=== PATIENT | male | born 1950 | race Caucasian/White ===

== ENCOUNTER 2017-01-26 21:22 | Emergency (ER) | payer OTHER ==
[2017-01-26 21:37] VITALS: BP 149/82
[2017-01-26] MEDS ORDERED: DOXYcycline CAP(*) 100 MG PO ONE (21:54)
--- NOTE | 2017-01-26 22:01 | UC ---
Skin Complaint HPI - HPI Summary HPI Summary: Noticed black dot on L upper thigh 2 days ago, thought it was mole. Noticed it again today, realized it was a tick. Removed with tweezers, but the tick came apart and pt is concerned about part of tick remaining. Worried about lyme. - History of Current Complaint Chief Complaint: UCWounds Time Seen by Provider: 01/26/17 21:39 Stated Complaint: TICK Hx Obtained From: Patient Onset/Duration: Gradual Onset, Lasting Days Timing: Constant Onset Severity: Mild Current Severity: Mild Location: Discrete Character: Redness Aggravating: Nothing Alleviating: Nothing Related History: Insect Bite/Sting - Allergy/Home Medications Allergies/Adverse Reactions: Allergies Allergy/AdvReac Type Severity Reaction Status Date / Time Iodine Allergy Unknown Unknown Verified 01/26/17 21:37 Reaction Details Shellfish Allergy Allergy Anaphylatic Verified 01/26/17 21:37 Shock Review of Systems Constitutional: Negative Skin: Other - tick bite Eyes: Negative ENT: Negative Respiratory: Negative Cardiovascular: Negative Gastrointestinal: Negative Genitourinary: Negative Motor: Negative Neurovascular: Negative Musculoskeletal: Negative Neurological: Negative Psychological: Negative All Other Systems Reviewed And Are Negative: Yes PMH/Surg Hx/FS Hx/Imm Hx Endocrine History Of: Reports: Diabetes Cardiovascular History Of: Reports: Hypertension Denies: Pacemaker/ICD - Surgical History Surgical History: Yes Surgery Procedure, Year, and Place: APPENDECTOMY 1986. Throat paploma removal 2011. L4-L5 Herniated disc- fragmented - Family History Known Family History: Positive: Hypertension, Diabetes Family History: FHx of [place] - Social History Occupation: Employed Full-time Alcohol Use: None Substance Use Type: None Smoking Status (MU): Never Smoked Tobacco - Immunization History Most Recent Influenza Vaccination: 2014 Most Recent Tetanus Shot: Up to date per patient Most Recent Pneumonia Vaccination: Up to date per patient Physical Exam Triage Information Reviewed: Yes Appearance: Well-Appearing, No Pain Distress, Well-Nourished Vital Signs: Initial Vital Signs Temp 98.9 F 01/26/17 21:30 Pulse 92 01/26/17 21:30 Resp 16 01/26/17 21:30 BP 149/82 01/26/17 21:30 Pulse Ox 98 01/26/17 21:30 Vital Signs Reviewed: Yes Eye Exam: Normal Eyes: Positive: Conjunctiva Clear ENT Exam: Normal ENT: Positive: Normal ENT inspection, Hearing grossly normal, Pharynx normal, TMs normal Dental Exam: Normal Neck exam: Normal Neck: Positive: Supple, Nontender, No Lymphadenopathy Respiratory Exam: Normal Respiratory: Positive: Chest non-tender, Lungs clear, Normal breath sounds, No respiratory distress, No accessory muscle use Cardiovascular Exam: Normal Cardiovascular: Positive: RRR, No Murmur Musculoskeletal Exam: Normal Neurological Exam: Normal Psychological Exam: Normal Skin Exam: Other - tick bite site benign, no streaking or drainage. Small piece of tick part removed with splinter forceps. Pt bucky well. Course/Dx - Diagnoses Provider Diagnoses: tick bite. partial tick removal. elevated blood pressure due to discomfort Discharge - Discharge Plan Condition: Stable Disposition: HOME Patient Education Materials: Tick Bite (ED) Referrals: Arpan Urias MD [Primary Care Provider] - Additional Instructions: TICK BITE: You have been bitten by a tick. Once the tick is removed, these "bites" usually cause no problems. Tick fever, tick paralysis, [place] Spotted fever, and Lyme disease are uncommon -- but you should mention this tick bite to your doctor if you develop unusual symptoms in the next several weeks. If you develop any of the following, please see your physician promptly: (1) Fever, chills, or generalized malaise associated with a headache. (2) A red round area at the site of the bite (or elsewhere) (3) Joint pain, joint swelling or generalized weakness. (4) Redness, swelling, or drainage at the site of the bite. Check yourself, your children and your pets for ticks whenever you've been in an area where ticks live. To remove a tick, grasp it firmly with some tweezers or a string in a slipknot as close to its head as possible and pull it steadily. Ticks do not have a typical "head" attached to their body. There are mouth parts sticking out which they use to feed. If there are mouth parts left behind in the wound there is NO increased risk of Lyme infection; however, the chances of a bacterial skin infection (cellulitis) are higher. If mouth parts remain after tick removal, the best thing to do is apply warm soaks to the area 3-4 times per day to encourage the skin to expel the foreign material. DOXYCYCLINE: Doxycycline (Vibramycin, Doryx) is an antibiotic of the tetracycline family. This type of drug is useful for infections of the respiratory tract and genital tract, and is sometimes used for intestinal infections. Unlike most tetracyclines, doxycycline can be taken with food. It is longer acting, and (usually) less prone to side effects than regular tetracycline. Tetracycline antibiotics can stain immature teeth and SHOULD NOT BE TAKEN BY CHILDREN, NURSING MOTHERS, OR WOMEN. Tetracyclines can make you more prone to sunburn. Abdominal cramping, nausea, and diarrhea are occasional side effects. Women may experience vaginal yeast infections. Call the doctor at once if you develop hives, itching, shortness of breath , or lightheadedness. WHEN A TICK IS NOT ENGORGED AND HAS BEEN ON LESS THAN 24 HOURS - THE RISK FOR LYME IS NEGLIGIBLE. YOU CAN REMOVE THE TICK AND OBSERVE THE AREA ON YOUR OWN. FOLLOW-UP CARE: You should contact your private physician for follow-up care if you develop spreading redness near the site of the bite or on any other areas of the body. If you are unable to get a timely appointment, or if you are worsening, call us or return for re-evaluation.
== END 2017-01-26 22:04 | disposition home or self-care (01) ==
LOC: UCEAST 21:22
DX: S70.362A Insect bite (nonvenomous), left thigh, initial encounter (principal); W57.XXXA Bitten or stung by nonvenomous insect and other nonvenomous arthropods, initial encounter; Y93.9 Activity, unspecified; Y92.9 Unspecified place or not applicable; I10 Essential (primary) hypertension
CPT/HCPCS: 99212; A9270-GY; G0463

== ENCOUNTER 2017-04-19 12:28 | Emergency (ER) | payer OTHER ==
[2017-04-19 12:44] VITALS: BP 137/78
--- NOTE | 2017-04-19 13:05 | UC ---
Throat Pain/Nasal Roberto Carlos HPI - HPI Summary HPI Summary: Patient has had 4 weeks of on and off sore throat pain, DAILY, nasal congestion, denies fever, complaining of cough and feeling tired - History of Current Complaint Chief Complaint: UCGeneralIllness Stated Complaint: SINUS/THROAT/NECK PAIN Time Seen by Provider: 04/19/17 12:33 Hx Obtained From: Patient Onset/Duration: Sudden Onset, Lasting Weeks Severity: Moderate Associated Signs & Symptoms: Positive: Dysphagia, Sinus Discomfort, Nasal Discharge - Epiglottits Risk Factors Epiglottis Risk Factors: Negative - Allergies/Home Medications Allergies/Adverse Reactions: Allergies Allergy/AdvReac Type Severity Reaction Status Date / Time Iodine Allergy Unknown Unknown Verified 04/19/17 12:33 Reaction Details Pollen Extract Allergy Unknown Verified 04/19/17 12:33 Reaction Details Shellfish Allergy Allergy Anaphylatic Verified 04/19/17 12:33 Shock Home Medications: Home Medications Acetaminophen [Eq Pain Reliever] 2 tab PO Q6HR PRN 04/19/17 [History Confirmed 04/19/17] Ibuprofen [Advil] 400 mg PO Q6HR PRN 04/19/17 [History Confirmed 04/19/17] PMH/Surg Hx/FS Hx/Imm Hx Previously Healthy: Yes - Surgical History Surgical History: Yes Surgery Procedure, Year, and Place: APPENDECTOMY 1986. Throat paploma removal 2011. L4-L5 Herniated disc- fragmented - Family History Known Family History: Positive: Hypertension, Diabetes Family History: FHx of [place] - Social History Alcohol Use: Rare Alcohol Amount: 1 Beer Yearly Substance Use Type: None Smoking Status (MU): Never Smoked Tobacco - Immunization History Most Recent Influenza Vaccination: 2014 Most Recent Tetanus Shot: Up to date per patient Most Recent Pneumonia Vaccination: Up to date per patient Review of Systems Constitutional: Fatigue Skin: Negative Eyes: Negative ENT: Sore Throat, Ear Ache, Nasal Discharge, Sinus Congestion Respiratory: Cough Cardiovascular: Negative Gastrointestinal: Negative Genitourinary: Negative Motor: Negative Neurovascular: Negative Musculoskeletal: Negative Neurological: Negative Psychological: Negative All Other Systems Reviewed And Are Negative: Yes Physical Exam Triage Information Reviewed: Yes Appearance: Ill-Appearing, Thin Vital Signs: Initial Vital Signs Temp 99.1 F 04/19/17 12:35 Pulse 94 04/19/17 12:35 Resp 16 04/19/17 12:35 BP 137/78 04/19/17 12:35 Pulse Ox 100 04/19/17 12:35 Vital Signs Reviewed: Yes Eye Exam: Normal Eyes: Positive: Conjunctiva Clear ENT Exam: Normal ENT: Positive: Hearing grossly normal, Pharynx normal, Nasal congestion, TMs normal, Tonsillar swelling, Tonsillar exudate Dental Exam: Normal Neck: Positive: Enlarged Nodes @ - bilateral cervical Respiratory Exam: Normal Respiratory: Positive: Chest non-tender, Lungs clear, Normal breath sounds Cardiovascular Exam: Normal Cardiovascular: Positive: RRR, No Murmur, Pulses Normal Abdominal Exam: Normal Abdomen Description: Positive: Nontender, No Organomegaly, Soft Bowel Sounds: Positive: Present Musculoskeletal Exam: Normal Neurological Exam: Normal Psychological Exam: Normal Skin Exam: Normal Throat Pain/Nasal Course/Dx - Course Course Of Treatment: hx obtained, exam performed, meds reviewed, treated for tonsillitis - Differential Dx/Diagnosis Differential Diagnosis/HQI/PQRI: Laryngitis, Otitis Media, Pharyngitis, Sinusitis, Tonsillitis Provider Diagnoses: Cough. sinusitis Discharge - Discharge Plan Condition: Stable Disposition: HOME Prescriptions: Amoxicillin/Clavulanate TAB* [Augmentin TAB 875*] 875 mg PO BID #20 tab Patient Education Materials: Sinusitis (ED) Additional Instructions: 1. take the medication as prescribed. 2. Increase fluid intake 3. Salt water gargles for the throat 4. Follow up with any worsening symtpoms.
== END 2017-04-19 13:14 | disposition home or self-care (01) ==
LOC: UCEAST 12:28
DX: R05 Cough (principal); J32.9 Chronic sinusitis, unspecified
CPT/HCPCS: 99212; G0463